=== PATIENT | female | born 1975 | race Caucasian/White ===

== ENCOUNTER → 2023-05-06 16:25 | Outpatient (CLI) | payer OTHER, SELFPAY ==
[2023-05-06 18:17] LABS: Cancer Antigen 125 7.8 U/mL (0-35)
[2023-05-09 10:12] LABS: Human Epididymis Prot 4 56.4 pmol/L (0.0-63.6)
== END ==
PROVIDERS: PCP Family Medicine; Referring Provider Student in an Organized Health Care Education/Training Program; Visit Provider Student in an Organized Health Care Education/Training Program
DX: N83.201 Unspecified ovarian cyst, right side (principal)
CPT/HCPCS: 36415; 86304; 86305

== ENCOUNTER → 2023-05-07 13:59 | Outpatient (CLI) | payer OTHER, SELFPAY ==
--- NOTE | 2023-05-07 14:01 | DI.US.S_ITS ---
PROCEDURE: US PELVIC COMPLETE INDICATIONS: RIGHT OVARIAN CYST - ABNORMAL UTERINE BLEEDING TECHNIQUE: Real-time scanning was performed of the pelvic organs, with image documentation. Additional endovaginal scanning was necessary due to incomplete visualization of the adnexal and endometrial structures by transabdominal scanning. COMPARISON: None. FINDINGS: Uterus: Uterus is anteverted and enlarged in size at 10.5 x 6.1 x 6.0 cm. The myometrium is heterogeneous The endometrium measures 20 mm combined thickness. 3 foci of heterogeneous echogenicity are present within the uterus. In the right anterior subserosal region, left anterior intramural region and left posterior intramural region measuring 25 x 28 x 21 mm, 25 x 16 x 21 mm and 10 12 x 10 x 13 mm respectively. Ovaries: The right ovary measures 4.1 x 2.7 x 3.4 cm, with a calculated ovarian volume of 19.3 cc. The left ovary measures 6.6 x 3.8 x 4.5 cm, with a calculated ovarian volume of 58.2 cc. Paraovarian cyst is present on the right measuring 1.4 x 1.6 x 1.4 cm. Left ovarian cyst is present measuring 4.0 x 3.2 x 3.3 cm. Other: No pathologic free abdominal or pelvic fluid. IMPRESSION: Multiple fibroids. Bilateral ovarian cysts. We strive to produce accurate, complete, and clear reports of imaging services. To assist us in improving patient care, this report was composed using standard report templates and voice recognition software. Therefore, it may contain abnormal punctuation, insertions and/or omissions. Occasional wrong-word or sound-alike substitutions may occur. Though we review the report and make efforts to correct it, we do recommend that the report be read carefully in proper context to recognize any text inaccuracies. Dictated by: Maki Helm M.D. on 05/07/2023 at 17:46 Approved by: Maki Helm M.D. on 05/07/2023 at 17:47
== END ==
PROVIDERS: PCP Family Medicine; Referring Provider Student in an Organized Health Care Education/Training Program; Visit Provider Student in an Organized Health Care Education/Training Program
DX: N93.9 Abnormal uterine and vaginal bleeding, unspecified (principal); N83.201 Unspecified ovarian cyst, right side; N83.202 Unspecified ovarian cyst, left side; D25.1 Intramural leiomyoma of uterus; D25.2 Subserosal leiomyoma of uterus
CPT/HCPCS: 76830; 76856; 93976

== ENCOUNTER 2023-08-11 11:35 | Day surgery (SDC) | payer OTHER, SELFPAY ==
[2023-08-06 08:37] VITALS: BMI 32.1
[2023-08-11] VITALS (14 sets, daily range): BP systolic 93–128; BP diastolic 66–87; PULSE 52–73; RESP 10–19; TEMP 36.1–36.7; O2SAT 92–98; BMI 32.1
--- NOTE | 2023-08-11 | PATH_ITS ---
[facility] Accession Number: [id number] No. of containers..01 Tissue . 01 Material submitted: . uterus - UTERUS, CERVIX, BILATERAL TUBES, RIGHT OVARY . 01 Diagnosis: Uterus, Cervix, Bilateral Tubes, Right Ovary, Laparoscopic Total Hysterectomy, Bilateral Salpingectomies, and Presumed Right-Oophorectomy (Weight 212 grams): Cervix with parakeratosis and hyperkeratosis, suggestive of possible prolapse, in the appropriate clinical setting. Endocervix with no significant histomorphologic abnormality. Secretory endometrium; negative for glandular hyperplasia, cytologic atypia, or malignancy. Myometrium with multiple intramural leiomyomas (up to 2.0 cm in greatest dimension); negative for cytologic atypia, regions of necrosis, or significantly increased mitotic activity. Uterine serosa with patchy hemorrhagic foci, non-specific. Ovary with a hemorrhagic corpus luteum cyst (2.2 cm in greatest dimension), rare, benign inclusion cysts, and stromal thecosis. First-described fallopian tube with a benign paratubal cyst (2.0 cm); complete cross sections, negative for significant atypia. Second-described fallopian tube, complete cross sections; negative for significant atypia. [facility] 08/14/2023 1642 Local . 01 Electronically signed: . Natasha Padilla MD, Pathologist NPI- [id number] . 01 Gross description: . The specimen is received in formalin labeled with the patient's name, , and uterus, cervix, bilateral tubes, right ovary, consists of an intact uterus (212 grams, 11.7 cm from superior to inferior, 7.1 cm from medial to lateral, and 5.5 cm from anterior to posterior), with attached cervix (2.3 x 1.8 cm), two detached, unoriented fallopian tubes (the first measures 6.1 x 0.7 cm, the second has the fimbriae detached from the tube, and is reapproximated to measure 5.5 x 0.4 cm), and an intact ovary (24 grams, 4.5 x 3.3 x 2.2 cm), with no additional adnexa. The cervix has a blankenship smooth ectocervix with a slit-like os measuring 0.9 cm in diameter. The anterior paracervical margin is inked blue, and the posterior paracervical margin is inked black. The serosa is blankenship and smooth with two hemorrhagic areas ranging from 1.1 to 2.3 cm in greatest dimension. The endocervical canal has blankenship herringbone mucosa and measures 2.1 cm in length. The endometrial cavity measures 3.9 cm from cornu to cornu and 5.1 cm in length, with pink velvety endometrium that averages 0.2 cm thick. The myometrium is pink-blankenship and trabecular with multiple well-circumscribed blankenship whorled nodules measuring up to 2.0 cm in greatest dimension with no hemorrhage or necrosis identified. . The first tube has violaceous smooth serosa with a cystic structure measuring 2.0 cm in greatest dimension filled with clear serous fluid. Sectioning reveals an unremarkable stellate lumen. . The second tube has blankenship smooth serosa with no cystic structures identified, and sectioning reveals an unremarkable stellate lumen. The ovary has a blankenship to congested, smooth external surface that is inked blue. Sectioning reveals a hemorrhagic cystic structure measuring 2.2 x 2.2 x 1.5 cm. Additional smooth-walled cysts are identified ranging from 0.1 to 0.7 cm, filled with blankenship to clear serous fluid. The cut surfaces are physiologic and unremarkable with no distinct lesions identified. . [employer] Analyst sections are submitted as follows: A1: Anterior cervix. A2: Posterior cervix. A3: Anterior full-thickness section. A4: Posterior full thickness section. A5: Hemorrhagic serosa. A6: Nodules. A7: First fallopian tube to include one-half of bisected fimbriae and cross sections. A8: Second tube to include one-half of bisected fimbriae and cross sections. A9-A12: Ovary. ([id number]) /MRV 08/12/[address] [place] [address] . 01 Pathologist provided ICD-10: D25.9, N93.9, N83.201 . 01 CPT . 414424 Specimen Comment: A courtesy copy of this report has been sent to [facility] Pathology Performed at: 01 [facility] [address] [place] [address], [place], [place] [id number] MD Jarett Curran MD Phone: [phone]
--- NOTE | 2023-08-11 12:05 | SUR.OPER ---
Lithotomy on padded OR bed. Coleharbor Pad Positioner under torso. Head on pillow, arms padded and tucked at sides. Legs secured in padded yellow fins stirrups.
[2023-08-11 12:17] LABS: Add Manual Diff / Slide Review NO; Basophils Absolute Auto 100 /uL (0-100); Basophils Percent Auto 0.8 % (0-2); Eosinophils Absolute Auto 200 /uL (0-450); Eosinophils Percent Auto 2.1 % (2-4); Hematocrit 31.2 % (36-46); Hemoglobin 10.4 g/dL (12.0-16.0); Lymphocytes Absolute Auto 2100 /uL (1100-4500); Lymphocytes Percent Auto 25.8 % (25-40); Mean Corpuscular HGB Conc 33.4 % (30-36); Mean Corpuscular Hemoglobin 27.8 PG (26-34); Mean Corpuscular Volume 83.2 fL (80-100); Monocytes Absolute Auto 900 /uL (0-900); Monocytes Percent Auto 10.6 % (3-14); Neutrophils Absolute Auto 4900 /uL (1500-7000); Neutrophils Percent Auto 60.7 % (50-75); Platelet Count 416 X10^3/uL (150-400); Red Blood Cell Count 3.75 X10^6/uL (4.0-5.2); Red Cell Distribution Width 14.6 % (11.6-14.8); White Blood Cell Count 8.1 X10^3/uL (4.5-11.0)
[2023-08-11] MEDS: LACTATED RINGERS 1,000 ML 42 ML IV ×2 (12:20→14:38)
[2023-08-11 12:34] LABS: Alanine Aminotransferase 20 IU/L (<35); Albumin 3.9 g/dL (3.5-5.0); Albumin Globulin Ratio 1.3 (1.0-2.8); Alkaline Phosphatase 35 U/L (38-126); Aspartate Aminotransferase 33 IU/L (14-36); BUN Creatinine Ratio 14.5 (6-22); Bilirubin Total 0.8 mg/dL (0.2-1.3); Blood Urea Nitrogen 8 mg/dL (7-17); Calcium 9.3 mg/dL (8.4-10.2); Carbon Dioxide 27 mmol/L (22-32); Chloride 103 mmol/L (98-107); Estimated Glomerular Filt Rate > 60 mL/min (>60); Globulin 3.1 g/dL (1.7-4.1); Glucose 91 mg/dL (70-100); Potassium 4.6 mmol/L (3.4-5.1); Sodium 134 mmol/L (137-145)
[2023-08-11 12:35] LABS: HEMOLYSIS 111 (0-50)
--- NOTE | 2023-08-11 12:46 | PM.PREOP ---
Pre-operative Note Interval Note History & Physical reviewed/Exam performed by Physician: Yes Changes to H&P: No H&P completed within 30 days and has changed as indicated here:: See note from 08/06/23. Only change to surgical plan is no preop heparin due to risk of bleeding during surgery. Plan to start postop lovenox 6hrs postop.
[2023-08-11] MEDS: CEFAZOLIN 2 GM/100 ML PREMIX 100 ML IV (12:55)
[2023-08-11] MEDS: BUPIVACAINE 0.25% MDV 10 ML INJ (13:21)
--- NOTE | 2023-08-11 15:54 | P.OP_ITS ---
Operative Date/Time/Diagnoses Date of procedure: 08/11/23 Time of procedure: 13:00 Pre-op diagnosis: 1. Abnormal uterine bleeding 2. Left ovarian cyst Post-op diagnosis: other (1. AUB 2. right ovarian cyst) Procedure & Clinicians Procedure: Total laparoscopic hysterectomy Bilateral salpingectomy Right oophorectomy Cystoscopy Same procedure as scheduled: No (Right ovary was removed, rather than the left, as the right was abnormal) Indications: 48-year-old female admitted for planned TLH/BS/LO/cysto. She underwent multiple imaging studies after having a CVA this summer, which noted an incidentally found left ovarian cyst, measuring 6.4-7cm on CT and MRI. The MRI done at an outside facility commented that the cyst was complex, but did not give any additional characterization. Both studies comment that there was no free fluid in the abdomen/pelvis. She states that she has noted dyspareunia and bloating. She also reports irregular periods for the last 9 months, but then states that she has always had irregular periods. She recently skipped 2 months, and then had a heavy flow of 3-4 weeks using double protection. She is not using any contraception. Surgeon: Bre Hardy Glost Kiln Operator: Johanne Enrique Click Yes if Unassisted: No Anesthesia Type: General Operative Notes Findings: 10 week sized uterus, normal bilateral fallopian tubes with a small paratubal cyst on the right. Normal appearing left ovary, abnormally enlarged right ovary with multiple cysts. Normal appearing liver edge. Specimen(s): other (uterus, cervix, bilateral fallopian tubes, right ovary) Applied: catheter Estimated Blood Loss (mL): 100 Blood products transfused: none Procedure in detail: The risks, benefits, indications and alternatives of the procedure were reviewed with the patient and informed consent was obtained. The pt was taken to the operating room where general anesthesia was obtained without difficulty. The pt was then placed in the low lithotomy position using Milton Stirrups and arms were tucked with padding. Sequential compression devices were placed bilaterally for VTE prophylaxis. She was then prepped and draped in the sterile fashion and a Rivera catheter was placed. A medium V-care uterine manipulator was placed through the cervix into the uterus for uterine manipulation. Attention was then turned to the patient?s abdomen were a 5mm skin incision was made in the inferior aspect of the umbilicus after injecting 0.25% Marcaine. A 5mm trocar and sleeve were then carefully introduced into the peritoneal cavity under direct visualization at a 90-degree angle while tenting up the abdominal wall. Intra-peritoneal placement was confirmed under direct visualization with the laparoscope with entry pressure <5 mmHg. A pneumoperitoneum was obtained with several liters of CO2 gas, maximum pressure of 15 mmHg. Upon entry into the peritoneal cavity, structures immediately below the incision were inspected and found to be free of injury. A survey of the patient's abdomen and pelvis was notable for the above findings. Three additional port sites, one 11mm and two 5mm, were placed under direct laparoscopic guidance. The Powerseal device was used to clamp, cut, and ligate the left fallopian tube, which was removed via the lateral port. The same procedure was done on the right side, however the paratubal cyst made it so the tube couldn't fit through the port, so it was placed in the posterior cul-de-sac. The utero-ovarian and round ligaments were then clamped, cut, and ligated bilaterally. The anterior broad ligament was then incised along the bladder reflection bilaterally and the bladder was dissected off the lower uterine segment until endopelvic fascia was visualized. The uterine arteries were then identified, skeletonized, and ligated. The uterosacral ligaments and cardinal ligaments were transected bilaterally. The anterior colpotomy was then made using the Bovie L-hook and continued circumferentially inferior to the cervix using the colpotomy ring as a guide. The entire cervix and uterus was then successfully amputated and delivered through the vagina. Excellent hemostasis was noted. The right infundibulopelvic ligament was identified, clamped, and ligated with the Powerseal. The right ovary and right tube were then delivered through the vagina. The vaginal cuff was then closed laparoscopically with size 0 Stratafix suture in a running fashion. The cystoscope was then primed and advanced through the urethra and into the bladder. Both ureteral orifices were identified and bilateral efflux of urine was visualized. A survey of the bladder did not show defects or visible suture. The cystoscope was then removed and the Rivera catheter was replaced to drain the bladder. Attention was then returned to the abdomen, where the pelvis was then copiously irrigated. Excellent hemostasis was noted. The pneumoperitoneum was then released, and the remaining ports were removed. The 11mm port fascia was closed with an 0-Vicryl suture. The skin incisions were then reapproximated using 4-0 monocryl suture in a subcuticular fashion and covered with Dermabond. At the completion of the case the sponge and needle counts were correct x 2. The patient was taken to the PACU in stable condition. Complications: none Post-operative Condition: stable Disposition: PACU Plan for aftercare: Plan for observation overnight, with discharge home in the morning. Will start lovenox this evening for VTE prophylaxis.
[2023-08-11] MEDS: fentaNYL 100 MCG/2 ML INJ IV ×2 (16:15→16:30)
[2023-08-11] MEDS: ONDANSETRON 4 MG/2 ML INJ IV (16:22)
[2023-08-11] MEDS: OXYCODONE/ACETAMINOPHEN 5/325 TABLET 1 TAB PO ×2 (16:22→16:50)
[2023-08-11] MEDS: KETOROLAC 30 MG/ML VIAL IV ×2 (17:44→23:33)
[2023-08-11] MEDS: ENOXAPARIN 40 MG/0.4 ML SYRINGE SUBCUT (17:44)
[2023-08-11] MEDS: OXYCODONE IR 5 MG TABLET PO (17:44)
[2023-08-11] MEDS: POTASSIUM CHLORIDE 10 MEQ TAB PO (20:56)
[2023-08-11] MEDS: SODIUM CHLORIDE 0.9% FLUSH 10 ML IV (20:56)
[2023-08-11] MEDS: ATORVASTATIN 20 MG TABLET 80 MG PO (20:56)
[2023-08-11] MEDS: GABAPENTIN 600 MG TABLET PO (20:56)
[2023-08-11] MEDS: DOCUSATE 100 MG CAPSULE 200 MG PO (20:56)
[2023-08-11] MEDS: BACLOFEN 10 MG TABLET 20 MG PO (20:56)
[2023-08-11] MEDS: NICOTINE 14 PATCH 14 MG TOP (20:57)
[2023-08-11] MEDS: METOPROLOL IR 50 MG TABLET 100 MG PO (20:57)
[2023-08-12] MEDS: OXYCODONE IR 5 MG TABLET PO ×2 (01:40→09:08)
[2023-08-12 01:44] VITALS: BP 100/60
[2023-08-12] MEDS: KETOROLAC 30 MG/ML VIAL IV ×2 (05:41→11:22)
[2023-08-12 08:00] VITALS: BP 102/60; PULSE 64; RESP 16; TEMP 36.8; O2SAT 93
[2023-08-12] MEDS: ASPIRIN EC 81 MG TABLET PO (09:07)
[2023-08-12] MEDS: DOCUSATE 100 MG CAPSULE 200 MG PO (09:07)
[2023-08-12] MEDS: ENOXAPARIN 40 MG/0.4 ML SYRINGE SUBCUT (09:07)
[2023-08-12] MEDS: BUSPIRONE 5 MG TABLET PO (09:07)
[2023-08-12] MEDS: GABAPENTIN 300 MG CAPSULE PO (09:08)
[2023-08-12] MEDS: METOPROLOL IR 50 MG TABLET 100 MG PO (09:08)
[2023-08-12] MEDS: PARoxetine 20 MG TABLET 10 MG PO (09:09)
[2023-08-12] MEDS: BACLOFEN 10 MG TABLET PO ×2 (09:32→11:23)
--- NOTE | 2023-08-12 09:52 | PM.DS.1 ---
History of Present Illness History of Present Illness Date Patient Seen: 08/12/23 Time Patient Seen: 09:52 Chief complaint: Laparoscopic Total Hysterectomy Discharge Providers Provider Discharge Date: 08/12/23 Primary care physician: Ryan Glez MD Discharge provider: Bre Hardy DO Summary Hospital Course Discharge Diagnosis: Abnormal uterine bleeding Right ovarian cyst Hospital Course: 48-year-old female admitted for planned total laparoscopic hysterectomy. She underwent an uncomplicated total laparoscopic hysterectomy with bilateral salpingectomy and right oophorectomy, with cystoscopy. Her postoperative course was uncomplicated. By postoperative day 1, she was ambulating, tolerating regular diet, voiding spontaneously, with no vaginal bleeding. Her pain was well controlled. Thus she was discharged home on postoperative day 1. Status at Discharge Cognitive/behavioral status at discharge: oriented Functional status at discharge: independent ambulation Overall status at discharge: patient is progressing back to baseline Time Spent with Patient Time spent: Less than 30 minutes Exam Vital Signs (past 8 hours): - 08/12/23 08:00 Temperature 98.3 F Pulse Rate 64 Respiratory Rate 16 Blood Pressure 102/60 Pulse Oximetry 93 Oxygen Flow Rate 0 Oxygen Delivery Method Room Air Oxygen Flow Rate 0 Const General: cooperative, healthy appearing and comfortable GI Inspection: normal to inspection Skin General: no rashes or lesions noted Other: 4 laparoscopic incisions intact with Dermabond in place Neuro General: patient alert, patient awake and patient oriented x3 Cognition: normal cognition Speech: speech normal Other: Patient did note her left hand has some stiffness as compared to prior to surgery Extrem General: normal to inspection Psych Appearance: grossly normal Mood: congruent mood Affect: normal affect Objective Labs 08/11/23 12:00 08/11/23 12:00 Labs: Laboratory Results - last 24 hr 08/11/23 12:00 WBC 8.1 RBC 3.75 L Hgb 10.4 L Hct 31.2 L MCV 83.2 MCH 27.8 MCHC 33.4 RDW 14.6 Plt Count 416 H Neut % (Auto) 60.7 Lymph % (Auto) 25.8 [place] % (Auto) 10.6 Eos % (Auto) 2.1 Baso % (Auto) 0.8 Neut # (Auto) 4900 Lymph # (Auto) 2100 [place] # (Auto) 900 Eos # (Auto) 200 Baso # (Auto) 100 Sodium 134 L Potassium 4.6 Chloride 103 Carbon Dioxide 27 BUN 8 Creatinine 0.55 Estimated GFR > 60 BUN/Creatinine Ratio 14.5 Glucose 91 Calcium 9.3 Total Bilirubin 0.8 AST 33 ALT 20 Alkaline Phosphatase 35 L Total Protein 7.0 Albumin 3.9 Globulin 3.1 Albumin/Globulin Ratio 1.3 Blood Type A Positive Antibody Screen Negative [facility] Medical History (Updated 08/07/23 @ 15:03 by Destinee Novak RN) Multiple sclerosis (~2003) Dysphagia due to recent stroke Dysarthria due to acute stroke Obesity (BMI 30.0-34.9) Anxiety Superficial phlebitis Vitamin D deficiency Fibroids Hypokalemia Lacunar infarction Acute left hemiparesis (01/2023) Hypertension CVA (cerebral vascular accident) (01/2023) Surgical History (Updated 08/07/23 @ 14:53 by Destinee Novak RN) History of carpal tunnel surgery of right wrist History of dilation and curettage Previous section Social History household members: spouse Smoking Status: Former smoker alcohol intake: former substance use type: does not use Discharge Assessment & Plan Assessment and Plan Assessment: 48-year-old female status post total laparoscopic hysterectomy, bilateral salpingectomy, right oophorectomy, with cystoscopy, doing well in the postoperative period. Plan of Treatment: Discharge to home Discharge Plan Discharge Plan Patient Disposition: Home Provider Discharge Comment: Take ibuprofen 600 mg every 6 hours for pain. Use oxycodone 5 mg as needed for severe pain. Avoid lifting over 20 lb for at least 4 weeks. Avoid placing anything in the vagina for 6 weeks. May shower normally. Gradually resume normal activities as tolerated. Discharge orders & Medications Discharge Orders: Discharge (Order); Ordered 08/12/23 Ordered By: Bre Hardy Prescriptions: Continued amlodipine 10 mg tablet 5 mg PO DAILY Patient Comments: Patient reports only taking 5mg daily, due to BP being too low. atorvastatin 80 mg tablet 80 mg PO BEDTIME baclofen 10 mg tablet 10 mg PO QD-BID Patient Comments: 10mg qam 10mg qnoon, 20mg qpm Rx Instructions: 10 mg a.m., 10 mg at noon; 20 mg at qhs buspirone 5 mg tablet 5 mg PO TID hydralazine 10 mg tablet 10 mg PO TID hydrochlorothiazide 50 mg tablet 50 mg PO DAILY Patient Comments: Every day at noon losartan 100 mg tablet 100 mg PO DAILY Patient Comments: Takes at noon paroxetine HCl [Paxil] 10 mg tablet 10 mg PO DAILY aspirin 81 mg tablet,delayed release (DR/EC) 81 mg PO DAILY potassium chloride 10 mEq capsule, extended release 10 meq PO BEDTIME mecobalamin (vitamin B12) 1,000 mcg tablet,chewable 1,000 mcg PO DAILY oxycodone 5 mg capsule 5 mg PO Q6H PRN (Reason: pain) Qty: 10 0RF Rx Instructions: as needed for postoperative pain enoxaparin [Lovenox] 40 mg/0.4 mL syringe 40 mg SUBCUT DAILY Qty: 4 0RF Rx Instructions: 40mg daily for a total of 10 days post-operatively gabapentin 300 mg Capsule 300 mg PO DAILY Patient Comments: 300mg qam, 600mg bedtime Rx Instructions: 300 mg in a.m.; 600 mg QHS metoprolol tartrate 100 mg Tablet 100 mg PO BID nicotine 21 mg/24 hr Patch 24 Hour 1 patch TRANSDERMAL DAILY Patient Comments: Pt is currently using the 13 mg patch alprazolam 0.25 mg tablet 0.25 mg PO DAILY baclofen 20 mg Tablet 20 mg PO BEDTIME gabapentin 600 mg Tablet 600 mg PO BEDTIME Follow up/Referrals: Ryan Gelz MD [Primary Care Provider] - Diet/Activity/Treatments Diet: Diet as Tolerated Skin/Wound/Dressing Care Report to your healthcare provider any signs of infection, such as:: chills, fever, increased pain, unusual drainage and unusual redness Visit Report/Discharge Packet Instructions: DI for Hysterectomy, DI for Laparoscopy Stand Alone Forms: Patient Portal/API Discharge Data Primary Care Provider: Ryan Glez Attending Provider: Bre Hardy VTE Deep Vein Thrombosis/Pulmonary Embolism Present on Admission: No
[2023-08-12] MEDS: NICOTINE 14 PATCH 14 MG TOP (10:26)
--- NOTE | 2023-08-12 10:36 | CM.DANOTE ---
DCP Assessment Note Pt is a 48yo F POD 1 from total lap hysterectomy with Dr Yuan on 08.11.23. PCP Currently Dr. Glez in [place], changing to new doc at [facility]. Pt could not remember name but has an appt set up with them in two weeks. Payer [employer] and self pay JIG BUILDER reviewed EMR. Per surgeon note, dc today pending voiding indep, no additional CM needs. JIG BUILDER entered room and introduced self and role. Pt resting in bed and accompanied by spouse Henrik (p [phone]) at bedside. Pt lives with spouse in [place], relatively indep but since stroke January 2023, has needed some assistance with dressing/meal prep/home chores. Pt drives short distances when needed but for the most part spouse/other family transports her. Uses cane at baseline, has a power wheel chair, shower seat, and bed rails. Pt reports no other CM needs at this time. Pt reports she just needs to void indep/her BP needs to go up and then she can dc home. Plan: dc home with spouse in POV when void indep/BP is WNL. No additional CM needs identified. CM team will follow as needed. DUNIA Martins Discharge Planning/Care Management CM Discharge Assessment Start: 08/12/23 10:33 Freq: Status: Active Protocol: Document 08/12/23 10:33 (Rec: 08/12/23 10:36 [id number]) Discharge Planning Assessment Assigned Community Health Nurse Supervisor DUNIA Venegas DPOA/Assigned Designee Name Henrik, Spouse Contact Information [phone] Advance Directives? No History Provided By Patient,Significant Other Prior Living Arrangements House Household Members spouse Type of transporation used prior to Relies on Others admit Comment since stroke mostly relies on spouse and other family/ friends. Occationally will drive self short distances to doc appts Willing to Return to Facility? No Independent with ADL's Yes Is patient alert and oriented? Yes Needs Assistance With Meal Prep,Home Chores / Shopping Comment pt occationally needs help with dressing DME Already Rented / Owned Bath Bench,Cane,Other Comment bed rails, power wheel chair Barriers to Discharge Yes Comment pt needs to void successfully prior to dc Discharge Plan Home Transportation Arrangement spouse in POV Referrals Initiated None needed Whiteboard Updated in Patient Room with Yes name and ext. # of Community Health Nurse Supervisor Review Status In Process Next Review Type Continued Stay Review Pre-Anesthesia Assessment Start: 08/06/23 08:37 Freq: Status: Active Protocol: Document 08/06/23 08:37 [facility] (Rec: 08/06/23 08:47 CAB [id number]) Pre-Anesthesia Assessment PAC Comment Pt is 6 months s/p stroke. Dr Katie Brandon and Dr. Hardy have reviewed the current recommendations for surgery 6- 9 months s/p stroke and Dr. Hardy is going to proceed. Pt is on 81mg ASA perioperatively Patient Information Reviewed Via Chart Review,Phone Assessment Primary Care Provider Gary Penaloza Seen Specialist in Last 12 Months Yes Specialist Seen Flat Ironer,Patient Financial Advocate, Other Comment Neurology visit 07/30/23 scanned and in surgery folder for dos review Primary Language Mongolian Usps Letter Carrier Required No Height 167.64 cm Weight 90.265 kg Body Mass Index (BMI) 32.1 Hearing Ability Normal Visual Impairment No Limitations Visual Assist None Dentition Type Teeth, Natural Present Barriers to Learning Memory,Visual Comment Short term memory issues and vision s/p CVA Hx Anesthesia Reactions No Hx Family Anesthesia Reaction No Hx Malignant Hyperthermia No Hx Blood Transfusions No Anesthesia Review Requested No Cardiac Cath Technician No alcohol intake current alcohol intake frequency a few times a week Smoking Status Current some day smoker how long ago did patient quit smoking Currently wearing a nicotine patch, no smoking last 3 weeks Substance Use Type marijuana Comment Rare edible intake Pain Present Denied Pain Musculoskeletal Symptoms Abnormal Gait,Difficulty Walking,Muscle Weakness History of Falling (Recent or History of Yes ) Patient is completely paralyzed or No completely immobile Prosthesis or Orthotic Device Cane Comment 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 No Does patient have WELCH/SOB No Hx Sleep Apnea No Currently Taking a Beta Gideon Yes: Metoprolol Hx Chest Pain No Hx SOB No Hx Syncope or Dizziness Yes: A little dizziness due to the medications I'm on Anti-Coagulant Therapy Yes: 81mg ASA-pt to continue perioperatively per surgeon Has a Flat Ironer Yes: Pre-op visit 07/01/[address] Reyes Cardiac Testing No Hx Pacemaker/ICD No Pacemaker Rep Required? No Comment Cardiac records scanned and in surgery folder for dos review Diet Type At Home Regular Dysphagia No Gastrointestinal Symptoms None Urinary Catheter Present No Hx Urinary Self Catheterization No Diabetes No Patient No Lactating No Presence of External or Internal Medical Yes Devices Received a COVID vaccine? No Marital Status Lives With spouse Current Living Arrangements House Number of Floors (Floors) One Floor Support System Spouse Does the Patient Have Assistance After Yes Surgery Patient Discharge Plan Description Return Home Comment Pt advised overnight length of stay per surgeon Feels Safe in Current Environment Yes Been Physically Hurt or Threatened By a No Person in Current Environment Do you have thoughts of harming yourself None or others? Are you currently considering suicide? No Do you have a plan to hurt yourself or No Plan others? Do You Have Any Spiritual Beliefs That No May Affect Your HC Choices? Do You Have Any Cultural Practices That No May Affect Your HC Choices? Comment Sabianism Who Can We Speak to About Patient's Care Family, friends Identifying Code for Release of Patient Declines to issue Information Health Care Proxy/Next of Kin Henrik () Health Care Proxy Emergency Contact Name Henrik () Emergency Contact Advance Directives? No Power of Outreach And Education Social Worker No PAC Instructions Do not shave/clip surgical site,Medications to take/avoid ,No ETOH/petroleum product on skin DOS,NPO,Post-op transportation,Pre-surgical wash,Sensory aids,Sturdy shoes /comfortable clothes,Do not bring valuables and remove jewelry
== END 2023-08-12 15:29 | disposition home or self-care (01) ==
LOC: OR 11:36 → AC 11:39
PROVIDERS: PCP Family Medicine; Referring Provider Student in an Organized Health Care Education/Training Program; Visit Provider Student in an Organized Health Care Education/Training Program
PROC: 0UT94ZZ Resection of Uterus, Percutaneous Endoscopic Approach (ICD-10-PCS; CPT 58571; principal; 2023-08-11 13:30)
DX: N93.9 Abnormal uterine and vaginal bleeding, unspecified (principal); D25.1 Intramural leiomyoma of uterus; N83.11 Corpus luteum cyst of right ovary; N83.202 Unspecified ovarian cyst, left side; N83.8 Other noninflammatory disorders of ovary, fallopian tube and broad ligament; I69.392 Facial weakness following cerebral infarction; I69.354 Hemiplegia and hemiparesis following cerebral infarction affecting left non-dominant side; E66.9 Obesity, unspecified; I10 Essential (primary) hypertension; G35 Multiple sclerosis; E78.5 Hyperlipidemia, unspecified; Z68.32 Body mass index [BMI] 32.0-32.9, adult; Z87.891 Personal history of nicotine dependence
CPT/HCPCS: 58571; 52000; 36415; 80053; 85025; 86850; 86900; 86901; J0330; J0690; J1100; J1650; J1885; J2250; J2405; J2704; J3010